=== PATIENT | female | born 1960 | race Caucasian/White ===

== ENCOUNTER 2022-04-12 11:04 | Day surgery (SDC) | payer MEDICARE ==
[2022-04-12] MEDS ORDERED: LIDOCAINE HCL 2% 100 MG/5 ML IJ ONE (11:05)
[2022-04-12] MEDS ORDERED: DIPRIVAN 200 MG/20 ML IV ONE (13:21)
[2022-04-12] MEDS ORDERED: Lactated Ringers 1,000 ML IV ONE (16:31)
--- NOTE | 2022-04-12 16:44 | XRAY ---
42 seconds of fluoroscopy was used in surgery for a bilateral L4-S1 MBB.
--- NOTE | 2022-04-12 16:44 | XRAY ---
Indication: Bilateral L4-S1 MBB. Intraoperative fluoroscopy provided for 42 seconds. 4 digital spot images submitted for interpretation demonstrates posterior needle tips projecting over the expected left and right L4-S1 nerve roots. Correlate with intraoperative findings/report. Incidental bilateral L4-L5 posterior fusion hardware, 2 right SI joint fixation screws, and partially visualized epidural stimulator device/leads.
== END 2022-04-12 14:00 | disposition home or self-care (01) ==
LOC: SDC-PAIN 11:04
PROVIDERS: ATTEND Psychiatry & Neurology Pain Medicine
DX: M47.816 Spondylosis without myelopathy or radiculopathy, lumbar region (principal); Z79.899 Other long term (current) drug therapy
CPT/HCPCS: 64493; 64494; 72020; 77002; J2704

== ENCOUNTER 2022-05-10 13:25 | Day surgery (SDC) | payer MEDICARE ==
[2022-05-10] MEDS ORDERED: BUPIVACAINE 0.5% VIAL IJ ONE (13:26)
[2022-05-10] MEDS ORDERED: DIPRIVAN 200 MG/20 ML IV ONE (15:59)
[2022-05-10] MEDS ORDERED: Xylocaine-Mpf 2% 5 Ml Vial ONE (16:00)
--- NOTE | 2022-05-10 16:47 | XRAY ---
Indication: Bilateral L4-S1 MBB. Intraoperative fluoroscopy provided for 29 seconds. 3 digital spot image submitted for interpretation demonstrates posterior needle tips projecting over the expected left and right L4-S1 nerve roots. Correlate with intraoperative findings/report. Incidental bilateral L4-L5 posterior fusion hardware.
[2022-05-10] MEDS ORDERED: Lactated Ringers 1,000 ML IV ONE (17:07)
--- NOTE | 2022-05-10 20:57 | XRAY ---
29 seconds of fluoroscopy was used in surgery for a bilateral L4-S1 MBB.
== END 2022-05-10 16:40 | disposition home or self-care (01) ==
LOC: SDC-PAIN 13:25
PROVIDERS: ATTEND Psychiatry & Neurology Pain Medicine
DX: M47.816 Spondylosis without myelopathy or radiculopathy, lumbar region (principal); Z79.899 Other long term (current) drug therapy
CPT/HCPCS: 64493; 64494; 72020; 77002; J2704

== ENCOUNTER 2022-06-07 14:00 | Day surgery (SDC) | payer MEDICARE ==
[2022-06-07] MEDS ORDERED: BUPIVACAINE 0.5% VIAL IJ ONE (14:01)
[2022-06-07] MEDS ORDERED: LIDOCAINE HCL 1% 50 MG/5 ML VL PF IJ ONE (14:01)
[2022-06-07] MEDS ORDERED: Depo-Medrol 40 MG/ML IM ONE (14:01)
[2022-06-07] MEDS ORDERED: DIPRIVAN 200 MG/20 ML IV ONE (15:50)
[2022-06-07] MEDS ORDERED: Lactated Ringers 1,000 ML IV ONE (16:57)
--- NOTE | 2022-06-07 17:02 | XRAY ---
Indication: Left L4-S1 RFA. Intraoperative fluoroscopy provided for 28 seconds. 4 digital spot images submitted for interpretation demonstrates posterior needle tipd projecting over the expected left L4-S1 nerve roots. Correlate with intraoperative findings/report. Incidental bilateral L5-S1 posterior fusion hardware and incompletely visualized epidural generator.
--- NOTE | 2022-06-07 20:02 | XRAY ---
28 seconds of fluoroscopy was used in surgery for a left L4-S1 RFA.
== END 2022-06-07 16:30 | disposition home or self-care (01) ==
LOC: SDC-PAIN 14:00
PROVIDERS: ATTEND Psychiatry & Neurology Pain Medicine
DX: M47.816 Spondylosis without myelopathy or radiculopathy, lumbar region (principal); Z79.899 Other long term (current) drug therapy
CPT/HCPCS: 64635; 64636; 72100; 77002; J1030; J2001; J2704

== ENCOUNTER 2022-06-14 14:10 | Day surgery (SDC) | payer MEDICARE ==
[2022-06-14] MEDS ORDERED: Lactated Ringers 1,000 ML IV ONE (14:11)
[2022-06-14] MEDS ORDERED: BUPIVACAINE 0.5% VIAL IJ ONE (14:11)
[2022-06-14] MEDS ORDERED: Depo-Medrol 40 MG/ML IM ONE (14:11)
[2022-06-14] MEDS ORDERED: LIDOCAINE HCL 1% 50 MG/5 ML VL PF IJ ONE (14:11)
[2022-06-14] MEDS ORDERED: DIPRIVAN 200 MG/20 ML IV ONE (16:03)
--- NOTE | 2022-06-14 17:16 | XRAY ---
Indication: Right L4-S1 RFA. Intraoperative fluoroscopy provided for 27 seconds. 6 digital spot image submitted for interpretation demonstrates posterior needle tips projecting over the right L4-S1 nerve roots. Correlate with intraoperative findings/report. Incidental bilateral L5-S1 fusion hardware and incompletely visualized right SI joint screws.
--- NOTE | 2022-06-15 10:47 | XRAY ---
27 seconds fluoroscopy time in surgery for right L4-S1 RFA.
== END 2022-06-14 16:40 | disposition home or self-care (01) ==
LOC: SDC-PAIN 14:10
PROVIDERS: ATTEND Psychiatry & Neurology Pain Medicine
DX: M47.816 Spondylosis without myelopathy or radiculopathy, lumbar region (principal); Z79.899 Other long term (current) drug therapy
CPT/HCPCS: 64635; 64636; 72100; 77002; J1030; J2001; J2704

== ENCOUNTER 2023-01-03 12:04 | Day surgery (SDC) | payer MEDICARE ==
[2023-01-03] MEDS ORDERED: Depo-Medrol 40 MG/ML IM ONE (12:05)
[2023-01-03] MEDS ORDERED: Sodium Chloride 0.9(Preservative Free) 10 ML IJ ONE (12:05)
[2023-01-03] MEDS ORDERED: DIPRIVAN 200 MG/20 ML IV ONE (13:40)
[2023-01-03] MEDS ORDERED: Lactated Ringers 1,000 ML IV ONE (14:07)
--- NOTE | 2023-01-03 15:07 | XRAY ---
Indication: Right L4-S1 transforaminal TRINIDAD. Intraoperative fluoroscopy provided for 43 seconds. 6 digital spot image submitted for interpretation demonstrates posterior needle tips projecting over the expected right L4 and L5 nerve roots. Small amount of contrast injected for needle tip placement. Correlate with intraoperative findings/report. Incidental bilateral L5-S1 fusion hardware, incompletely visualized right SI joint screws, and epidural leads.
--- NOTE | 2023-01-03 17:05 | XRAY ---
43 seconds of fluoroscopy was used in surgery for a right L4-S1 transforaminal TRINIDAD.
== END 2023-01-03 14:10 | disposition home or self-care (01) ==
LOC: SDC-PAIN 12:04
PROVIDERS: ATTEND Psychiatry & Neurology Pain Medicine
DX: M54.16 Radiculopathy, lumbar region (principal); Z79.899 Other long term (current) drug therapy
CPT/HCPCS: 64483; 64484; 72100; 77003; J1030; J2704; Q9966